=== PATIENT | female | born 1945 | race Two or more races ===

== ENCOUNTER 2019-04-01 14:32 | Inpatient (IN) | payer OTHER ==
[~2019-04-01] VITALS: Ht 175.3 cm; Wt 82.6 kg
[2019-04-01 14:35] VITALS: BP_SYST 161
--- NOTE | 2019-04-01 14:35 | NUR ---
Triaged on EMS gurney, awaiting avail bed. Accompanied by EMS EMT's
[2019-04-01] MEDS ORDERED: CLOP75TA32 PO (15:32)
[2019-04-01] MEDS ORDERED: LIP20 PO (15:32)
[2019-04-01] MEDS ORDERED: TRAMADOL PO (15:32)
[2019-04-01] MEDS ORDERED: DONE10TA44 PO (15:32)
[2019-04-01] MEDS ORDERED: SER25 PO (15:32)
[2019-04-01] MEDS ORDERED: BUSP5TAB3 PO (15:32)
[2019-04-01] MEDS ORDERED: DIVA250T PO (15:32)
[2019-04-01] MEDS ORDERED: VANORAL PO (15:32)
[2019-04-01] MEDS ORDERED: LISI2.5T48 PO (15:32)
[2019-04-01] MEDS ORDERED: ROCPM1 IV (15:32)
[2019-04-01] MEDS ORDERED: PROP10TA10 PO (15:32)
--- NOTE | 2019-04-01 15:32 | NUR ---
Medication reconciliation completed with information provided by Jasen. Any prior medication reconciliation on file was reviewed and corrected.
[2019-04-01 16:31] LABS: BASOPHILS # (AUTO) 0.1 K/uL (0.0-0.2); BASOPHILS % (AUTO) 1.8 % (0.0-2.0); EOSINOPHILS # (AUTO) 0.1 K/uL (0.0-0.4); HEMATOCRIT 40.4 % (36-48); HEMOGLOBIN 13.5 g/dL (12.0-16.0); LYMPHOCYTES # (AUTO) 2.1 K/uL (1.0-5.5); LYMPHOCYTES % (AUTO) 27.1 % (20.5-51.5); MEAN CORPUSCULAR HEMOGLOBIN 32 pg (27-31); MEAN CORPUSCULAR HGB CONC 33 % (32-36); MEAN CORPUSCULAR VOLUME 95 fL (79.0-98.0); MONOCYTES # (AUTO) 0.4 K/uL (0.0-1.0); MONOCYTES % (AUTO) 5.2 % (1.7-9.3); NEUTROPHILS # (AUTO) 5.1 K/uL (1.8-7.7); NEUTROPHILS % (AUTO) 64.9 % (40.0-70.0); PLATELET COUNT (AUTO) 366 K/uL (130-430); RED BLOOD CELL COUNT(AUTO) 4.26 MIL/uL (4.2-6.2); RED CELL DISTRIBUTION WIDTH 14.4 % (9.0-15.0); WHITE BLOOD COUNT (AUTO) 7.8 K/uL (4.8-10.8)
[2019-04-01 16:58] LABS: ALANINE AMINOTRANSFERASE 22 U/L (12-78); ANION GAP 8 (5-15); ASPARTATE AMINOTRANSFERASE 20 U/L (10-37); CALCIUM 8.5 mg/dL (8.4-11.0); CHLORIDE 106 mmol/L (98-107); CREATININE 1.32 mg/dL (0.55-1.30); GLUCOSE 95 mg/dL (70-99); SODIUM SERUM 144 mmol/L (136-145); TOTAL BILIRUBIN 0.4 mg/dL (0.0-1.0); UREA NITROGEN, BLOOD 23 mg/dL (8-21)
[2019-04-01] MEDS ORDERED: MAGNESIUM OXIDE 400 MG TABLET PO ONE (17:00)
[2019-04-01] MEDS ORDERED: POTASSIUM CHLORIDE 20 MEQ TAB.PRT.SR PO ONE (17:00)
[2019-04-01 17:01] LABS: ALCOHOL, BLOOD < 3 mg/dL (<10)
[2019-04-01 17:02] LABS: POTASSIUM 2.9 mmol/L (3.5-5.1)
[2019-04-01 17:03] LABS: ACETAMINOPHEN < 1 ug/mL (1-30)
[2019-04-01 17:40] LABS: BILIRUBIN,URINE NEGATIVE (NEGATIVE); COLOR,URINE YELLOW (YELLOW); GLUCOSE,URINE NEGATIVE (NEGATIVE); KETONES,URINE NEGATIVE (NEGATIVE); LEUKOCYTE ESTERASE ,URINE 2+ (NEGATIVE); NITRITE, URINE NEGATIVE (NEGATIVE); PH,URINE 7.5 (5.0-8.0); PROTEIN URINE NEGATIVE (NEGATIVE); UROBILINOGEN,URINE 0.2 (0.2-1.0)
--- NOTE | 2019-04-01 17:40 | NUR ---
PT CAME TO ER FOR MED CLEARANCE. PT HAS NO COMPLAINTS, NO PAIN, VSS.
[2019-04-01 17:45] LABS: BLOOD, URINE TRACE (NEGATIVE); CLARITY/URINE HAZY (CLEAR)
[2019-04-01] MEDS ORDERED: LEVOFLOXACIN 500 MG TABLET PO ONE (18:00)
[2019-04-01 18:10] LABS: BARBITURATE, URINE NEGATIVE (NEG <=200); BENZODIAZEPINE, URINE NEGATIVE (NEG <=150); CANNABINOID, URINE NEGATIVE (NEG <=50); COCAINE, URINE NEGATIVE (NEG <=150); METHAMPHETAMINES SCREEN,URINE NEGATIVE (NEG <=500); OPIATE, URINE NEGATIVE (NEG <=100); PHENCYCLIDINE SCREEN,URINE NEGATIVE (NEG <=25); URINE AMPHETAMINE NEGATIVE (NEG <=500); URINE METHADONE NEGATIVE (NEG <=200); URINE OXYCODONE SCREEN NEGATIVE (NEG <=100); URINE PROPOXYPHENE SCREEN NEGATIVE (NEG <=300)
[2019-04-01 18:11] LABS: UR TRICYCLIC ANTIDEPRESSANTS NEGATIVE (NEG <=300)
[2019-04-01] MEDS ORDERED: NACL 0.9% 1,000 ML IV ONE (18:45)
[2019-04-01 18:51] LABS: BACTERIA,URINE FEW /HPF (None Seen); MUCUS,URINE None Seen /LPF (None Seen); RBC,URINE 0-3 /HPF (0-3)
--- NOTE | 2019-04-01 19:00 | NUR ---
PT FAMILY GAVE PHONE NUMBER TO NURSING STATION TO CONTACT WHEN PT ADMITTED. PT CURRENTLY RESTING IN BED NO COMPLAINTS.
--- NOTE | 2019-04-01 21:50 | NUR ---
ADMISSION NOTE Received patient from ER via ruba, received report from ERICA Rogers. Patient admitted with diagnosis of UTI, hyperkalemia.
--- NOTE | 2019-04-01 21:55 | NUR ---
Patient will be admitted to care of Radha MALDONADO. Admitted to Tele unit. Will go to room 121A. Belongings list completed. Complete and up to date summary report printed. SBAR report to be given at bedside with opportunity for questions.
[2019-04-01 22:16] VITALS: BP_SYST 157
--- NOTE | 2019-04-01 23:20 | NUR ---
Assessment Received SBAR report from ERICA Womack admit nurse. Patient is resting in bed, eyes open, no s/sx of distress and nonlabored breathing on room air. Assessment done.
[2019-04-02] VITALS: BP_SYST 162
[2019-04-02] MEDS ORDERED: ALBUTEROL SULFATE 0.083% 2.5 MG/3 ML VIAL.NEB INH PRN (00:45)
[2019-04-02] MEDS ORDERED: ACETAMINOPHEN 325 MG TABLET PO PRN (00:45)
[2019-04-02] MEDS ORDERED: cefTRIAXone 1 GM IVPB PREMIX 50 ML IV SCH ×2 (01:00)
[2019-04-02] MEDS ORDERED: POTASSIUM CHLORIDE 20 MEQ TAB.PRT.SR PO ONE ×2 (01:00→15:30)
[2019-04-02] MEDS ORDERED: hydrALAZINE HCL 20 MG/ML VIAL IVP ONE (01:00)
[2019-04-02] MEDS ORDERED: LORazepam 2 MG/ML VIAL IVP ONE (01:00)
--- NOTE | 2019-04-02 01:00 | NUR ---
Agitated, combative, paged Patient suddenly got up out of bed, left room and attempted to walk in hallway. It was not possible to reorient her to surroundings, due to she got verbally aggressive and started cursing at the staff. She said we "don't know anything, we are b...s" and she wants to go home. She demanded a cup of water and it was provided. Security was called and the staff kept the patient from escalating. She did return to her room, though she was upset that her daughter was not here and she insisted she was going home. Dr. Asher was paged and informed of elevated blood pressure and agitate state, she provided one time medication orders, which were read back and entered in [employer].
--- NOTE | 2019-04-02 01:38 | NUR ---
Milton Sanchezoline Patient agitated, combative and verbally cursing at the staff. Presently she is in bed, she refused to take PO K-dur and refused IVP hydralazine for elevated B/P. It took the assistance of four staff members, including security, to hold her arms and legs so that medication can be given IVP. Ativan and hydralazine were both administered IVP. Will continue to monitor.
[2019-04-02 02:10] VITALS: BP_SYST 182
--- NOTE | 2019-04-02 04:15 | NUR ---
RESTING Patient is resting, w/ eyes closed. Presently she is calm. Safety precautions in place. Will continue to monitor.
--- NOTE | 2019-04-02 05:40 | NUR ---
awake Patient attempted to get out of bed and bed alarm sounded. She was assisted. She was calm and said she needed to use the restroom. She was assisted and returned back to bed after voided. She was calm and carried a conversation. She covered up and closed her eyes again. Bed alarm on. Will continue to monitor.
[2019-04-02 07:53] LABS: BASOPHILS % (AUTO) 0.5 % (0.0-2.0); EOSINOPHILS # (AUTO) 0.1 K/uL (0.0-0.4); EOSINOPHILS % (AUTO) 0.9 % (0.0-4.0); HEMATOCRIT 39.6 % (36-48); HEMOGLOBIN 13.2 g/dL (12.0-16.0); LYMPHOCYTES # (AUTO) 1.6 K/uL (1.0-5.5); LYMPHOCYTES % (AUTO) 23.7 % (20.5-51.5); MEAN CORPUSCULAR HEMOGLOBIN 32 pg (27-31); MEAN CORPUSCULAR HGB CONC 33 % (32-36); MEAN CORPUSCULAR VOLUME 95 fL (79.0-98.0); MONOCYTES # (AUTO) 0.7 K/uL (0.0-1.0); MONOCYTES % (AUTO) 10.3 % (1.7-9.3); NEUTROPHILS # (AUTO) 4.4 K/uL (1.8-7.7); NEUTROPHILS % (AUTO) 64.6 % (40.0-70.0); PLATELET COUNT (AUTO) 339 K/uL (130-430); RED BLOOD CELL COUNT(AUTO) 4.15 MIL/uL (4.2-6.2); RED CELL DISTRIBUTION WIDTH 14.4 % (9.0-15.0); WHITE BLOOD COUNT (AUTO) 6.8 K/uL (4.8-10.8)
[2019-04-02 08:00] VITALS: BP_SYST 125
[2019-04-02 08:26] LABS: ALANINE AMINOTRANSFERASE 19 U/L (12-78); ALBUMIN 2.8 g/dL (3.4-4.8); ANION GAP 7 (5-15); ASPARTATE AMINOTRANSFERASE 16 U/L (10-37); CALCIUM 8.5 mg/dL (8.4-11.0); CHLORIDE 106 mmol/L (98-107); GLUCOSE 81 mg/dL (70-99); SODIUM SERUM 142 mmol/L (136-145); TOTAL BILIRUBIN 0.5 mg/dL (0.0-1.0); UREA NITROGEN, BLOOD 14 mg/dL (8-21)
[2019-04-02 08:29] LABS: POTASSIUM 2.8 mmol/L (3.5-5.1)
[2019-04-02] MEDS ORDERED: COMMUNICATION ORDER XX ONE (08:30)
[2019-04-02] MEDS: CLOPIDOGREL BISULFATE 75 MG TABLET PO SCH (09:00)
[2019-04-02] MEDS: LISINOPRIL 5 MG TABLET PO SCH (09:00)
[2019-04-02] MEDS: PROPRANOLOL HCL 10 MG TABLET (INDERAL) PO SCH ×2 (09:00→21:48)
[2019-04-02] MEDS: busPIRone HCL 5 MG TABLET PO SCH ×2 (09:00→21:48)
[2019-04-02] MEDS: VANCOMYCIN HCL ORAL SOLUTION 250 MG/5 ML, 80 ML PO SCH ×3 (09:00→21:47)
[2019-04-02] MEDS: QUEtiapine FUMARATE 25 MG TABLET PO SCH ×2 (09:00→21:49)
--- NOTE | 2019-04-02 09:10 | NUR ---
Patient has stable vital signs, she is refusing her morning meds. Her daughter is by her side. Dimitrios
--- NOTE | 2019-04-02 09:26 | NUR ---
CONSULTATION PAGED/CALLED Reason for Consultation: [] INCREASED COMBATIVENES Person Who was Notified: [] SHARLA Consulting Physician: [] DR WILLARD Social Insurance Adviser Specialty: [] PSYCH Ordering Physician: [] DR GARCIA
[2019-04-02] MEDS ORDERED: hydrALAZINE HCL 20 MG/ML VIAL IVP PRN (10:30)
[2019-04-02] MEDS ORDERED: ENALAPRILAT DIHYDRATE 1.25 MG/ML VIAL IVP PRN (10:30)
[2019-04-02] MEDS ORDERED: cloNIDine HCL 0.1 MG TABLET PO PRN (10:30)
[2019-04-02 12:15] VITALS: BP_SYST 121
--- NOTE | 2019-04-02 13:45 | NUR ---
Patient was uncooperative and wanted to leave AMA, was called and ordered haldol, diphenhydramine and ativan. Patient cooperated with injection. Patient is back in her bed sleeping. Daughter was called to give her an update of her mothers well-being. Dimitrios
[2019-04-02] MEDS ORDERED: LORazepam 2 MG/ML VIAL IM ONE (14:00)
[2019-04-02] MEDS ORDERED: HALOPERIDOL LACTATE 5 MG/ML VIAL IM ONE (14:00)
[2019-04-02] MEDS ORDERED: DIPHENHYDRAMINE INJ 50 MG/ML VIAL IM ONE (14:00)
[2019-04-02] MEDS ORDERED: DIPHENHYDRAMINE INJ 50 MG/ML VIAL ONE (14:23)
[2019-04-02] MEDS ORDERED: LORazepam 2 MG/ML VIAL ONE (14:23)
[2019-04-02] MEDS ORDERED: HALOPERIDOL LACTATE 5 MG/ML VIAL ONE (14:24)
[2019-04-02 16:10] VITALS: BP_SYST 131
--- NOTE | 2019-04-02 17:41 | NUR ---
Patient is stable, being taken down to radiology for imaging. Will give her flagyl IV once she returns. Dimitrios MALDONADO
--- NOTE | 2019-04-02 18:01 | NUR ---
Patient is back in her room, vitals are stable, bed is low, locked, 2 side rails up and call light within reach. Dimitrios MALDONADO
--- NOTE | 2019-04-02 19:30 | NUR ---
opening note Patient is resting w/ eyes closed, nonlabored breathing. IV antibiotic is infusing and patient is tolerating. Bed is locked in lowest position, bed alarm on and call light w/in reach.
[2019-04-02] MEDS: LEVOFLOXACIN 250 MG/D5W 50 ML IV SCH (20:07)
[2019-04-02 20:30] VITALS: BP_SYST 139
[2019-04-02] MEDS: DONEPEZIL HCL 5 MG TABLET (ARICEPT) PO SCH (21:49)
[2019-04-02] MEDS: ATORVASTATIN 20 MG TABLET PO SCH (21:49)
--- NOTE | 2019-04-02 21:49 | NUR ---
Medications due medications given. Patient was resting w/ eyes closed. She was approached and greeted and she was calm. I informed her I had medications for her and I asked if she would like to take with water or juice and she replied she would take meds with water. She took all meds and returned to resting position and closed her eyes.
[2019-04-02] MEDS: DIVALPROEX SODIUM 250 MG TABLET(DEPAKOTE) PO SCH (21:51)
[2019-04-03] VITALS (7 sets, daily range): BP systolic 109–156
--- NOTE | 2019-04-03 00:30 | NUR ---
Dr. Lakeshia Asher making rounds
--- NOTE | 2019-04-03 04:23 | NUR ---
Resting Patient is resting w/ eyes closed, nonlabored breathing. Safety precautions in place.
[2019-04-03 07:16] LABS: BASOPHILS # (AUTO) 0.1 K/uL (0.0-0.2); BASOPHILS % (AUTO) 0.8 % (0.0-2.0); EOSINOPHILS # (AUTO) 0.2 K/uL (0.0-0.4); EOSINOPHILS % (AUTO) 1.8 % (0.0-4.0); HEMATOCRIT 38.9 % (36-48); HEMOGLOBIN 12.9 g/dL (12.0-16.0); LYMPHOCYTES # (AUTO) 2.3 K/uL (1.0-5.5); LYMPHOCYTES % (AUTO) 25.4 % (20.5-51.5); MEAN CORPUSCULAR HEMOGLOBIN 32 pg (27-31); MEAN CORPUSCULAR HGB CONC 33 % (32-36); MEAN CORPUSCULAR VOLUME 96 fL (79.0-98.0); MONOCYTES # (AUTO) 0.9 K/uL (0.0-1.0); NEUTROPHILS # (AUTO) 5.6 K/uL (1.8-7.7); PLATELET COUNT (AUTO) 349 K/uL (130-430); RED BLOOD CELL COUNT(AUTO) 4.05 MIL/uL (4.2-6.2); RED CELL DISTRIBUTION WIDTH 14.9 % (9.0-15.0)
--- NOTE | 2019-04-03 07:30 | NUR ---
closing note Patient ambulated to restroom and returned to bed. She is resting in comfortable position. Safety precautions in place. Endorsed care.
[2019-04-03 07:39] LABS: ALANINE AMINOTRANSFERASE 12 U/L (12-78); ALBUMIN 2.5 g/dL (3.4-4.8); ANION GAP 5 (5-15); ASPARTATE AMINOTRANSFERASE 13 U/L (10-37); CALCIUM 8.6 mg/dL (8.4-11.0); CHLORIDE 111 mmol/L (98-107); CREATININE 1.04 mg/dL (0.55-1.30); GLUCOSE 80 mg/dL (70-99); SODIUM SERUM 145 mmol/L (136-145); TOTAL BILIRUBIN 0.4 mg/dL (0.0-1.0); UREA NITROGEN, BLOOD 15 mg/dL (8-21)
--- NOTE | 2019-04-03 08:00 | NUR ---
Note Pt sitting up in bed eating her breakfast. No SOB/resp distress or pain/discomfort noted at this time. IV in Right AC intact and patent at this time. No needs noted at this time. Tele unit attached and intact at this time. Call light within reach.
[2019-04-03] MEDS: LISINOPRIL 5 MG TABLET PO SCH (08:21)
[2019-04-03] MEDS: PROPRANOLOL HCL 10 MG TABLET (INDERAL) PO SCH ×2 (08:21→23:43)
[2019-04-03] MEDS: CLOPIDOGREL BISULFATE 75 MG TABLET PO SCH (08:21)
[2019-04-03] MEDS: busPIRone HCL 5 MG TABLET PO SCH ×2 (08:21→23:37)
[2019-04-03] MEDS: VANCOMYCIN HCL ORAL SOLUTION 250 MG/5 ML, 80 ML PO SCH ×3 (08:22→23:45)
[2019-04-03] MEDS: QUEtiapine FUMARATE 25 MG TABLET PO SCH ×2 (08:22→23:44)
--- NOTE | 2019-04-03 09:50 | NUR ---
Nutrition Update Kristopher Scale 14 noted. Pt admitted for UTI, hyperkalemia. Diet: regular BMI: 26.9 kg/m2 RD to follow per nutrition care standards.
--- NOTE | 2019-04-03 11:20 | NUR ---
NOTE Dr Harris at pt's bedside assessing pt and now speaking to pt's daughter Paula on the phone. Update and questions/concerns were answered at this time.
--- NOTE | 2019-04-03 12:15 | NUR ---
Note' Pt got OOB and came to nurses' station, stating she wants to go home. Pt removed tele unit at noon and refuses to have it reattached. Pt sitting on side of bed and waiting for lunch at this time. Pt stable in gait - no unsteadiness or weakness noted at this time. Pt has been next to nurses' station all shift for close observation for needs and care. Call light within reach.
--- NOTE | 2019-04-03 15:15 | NUR ---
Note Pt's 2 daughters and friend at bedside - pt upset/restless and wants to go home. Pt's daughter Paula spoke to Brittney (KHUSHBU) about Hospice for pt. Dr Harris was called for an order. Waiting for call back. Pt is resting in bed with family at bedside. Call light within reach.
--- NOTE | 2019-04-03 15:32 | NUR ---
Discharge Planning: DCP faxed pt referral to [facility] ([phone]) DCP to follow up. Addendum: 04/03/19 at 1721 by Radha Peguero DP DCP spoke to Stefany at [facility] ([phone]) declined taking patient. DCP made KHUSHBU aware. Addendum: 04/03/19 at 1724 by Radha Peguero DP DCP made nurse lopez .
[2019-04-03] MEDS: LEVOFLOXACIN 250 MG/D5W 50 ML IV SCH (16:40)
--- NOTE | 2019-04-03 18:45 | NUR ---
Note Pt's 2 daughters left the floor after speaking to rn case management Brittney. Pt has been restless and confused all shift, walking out into the hallway and to the front of the hospital lobby. No SOB/resp distress or pain/discomfort noted all shift. IV in right AC intact and patent. Pt has been next to nurses' station all shift for close observation for needs and care. Pt was checked on q1' and PRN all shift for needs and care. No needs noted at this time. Call light within reach.
[2019-04-03] MEDS ORDERED: LORazepam 2 MG/ML VIAL IVP PRN (21:45)
[2019-04-03] MEDS: DONEPEZIL HCL 5 MG TABLET (ARICEPT) PO SCH (23:37)
[2019-04-03] MEDS: DIVALPROEX SODIUM 250 MG TABLET(DEPAKOTE) PO SCH (23:42)
[2019-04-03] MEDS: ATORVASTATIN 20 MG TABLET PO SCH (23:43)
--- NOTE | 2019-04-04 07:30 | NUR ---
AM rounds: Patient is calm, in bed. Safety precautions maintained.
[2019-04-04 08:00] VITALS: BP_SYST 151
--- NOTE | 2019-04-04 08:25 | NUR ---
Patient just woke up and is having breakfast, she took all of her meds this am, she is coorperative but sad that her daughters are not with her this morning. Vitals are within normal limits and bed linen was changed this morning. Bed is low and locked, call light is within reach, two side rails are up. Dimitrios MALDONADO
[2019-04-04] MEDS: CLOPIDOGREL BISULFATE 75 MG TABLET PO SCH (08:44)
[2019-04-04] MEDS: QUEtiapine FUMARATE 25 MG TABLET PO SCH ×2 (08:44→22:49)
[2019-04-04] MEDS: busPIRone HCL 5 MG TABLET PO SCH ×2 (08:44→22:51)
[2019-04-04] MEDS: LISINOPRIL 5 MG TABLET PO SCH (08:47)
[2019-04-04] MEDS: PROPRANOLOL HCL 10 MG TABLET (INDERAL) PO SCH ×2 (08:48→22:50)
[2019-04-04] MEDS: VANCOMYCIN HCL ORAL SOLUTION 250 MG/5 ML, 80 ML PO SCH ×3 (08:48→21:00)
--- NOTE | 2019-04-04 10:28 | NUR ---
DCP follow-up/Hospice Eval: DELINQUENT TAX COLLECTION ASSISTANT received Order for Hospice Eval. Contacted [facility] hospice admission , completed phone intake and faxed packet to . Contacted [facility] admission [phone], faxed packet to . DCP will continue to follow up.
--- NOTE | 2019-04-04 11:45 | NUR ---
Patient is being disruptive and throwing doors. was called to give Ativan 1MG. She is now sitting im her bed quietly. Dimitrios MALDONADO
--- NOTE | 2019-04-04 12:00 | NUR ---
Agitation: Patient is agitated, attempted to lock door , medicated with Ativan 1 mg IVP.
[2019-04-04 12:35] VITALS: BP_SYST 138
--- NOTE | 2019-04-04 13:22 | NUR ---
Family/ hospice: Spoke with patient's daughters Paula and Emily, they did not like [facility], want patient to go back to [facility] and prefers [facility] since patient was under their services before for palliative care. Daughters went to check if they wound take patient back under [facility], they won't know until saturday.
[2019-04-04] MEDS: LORazepam 2 MG/ML VIAL IVP PRN ×2 (13:39→16:53)
--- NOTE | 2019-04-04 13:44 | NUR ---
Patient is calm and 4 family members are by her side. Her vitals have been stable and is currently eating her lunch. Her family states that she is very calm at the moment. Bed is low and locked, call light within reach and 2 side rails are up. Dimitrios MALDONADO
--- NOTE | 2019-04-04 15:17 | NUR ---
Hospice Eval with [facility]: Spoke with Selam Romero slots manager. Requested a new Hospice Eval order for [facility]. Requested documents faxed to [facility] at [phone]. Addendum: 04/04/19 at 1523 by Sangita Aguilar RN Santi Jimenez uses [facility] Only.
[2019-04-04] MEDS: LEVOFLOXACIN 250 MG/D5W 50 ML IV SCH (16:53)
[2019-04-04 17:10] VITALS: BP_SYST 141
--- NOTE | 2019-04-04 17:15 | NUR ---
Vital signs stable, patient got undressed and refused to get dressed. Gave 1mg ativan, patient is calm now. Bed is low and locked, call light is within reach, two side rails are up. Dimitrios MALDONADO
--- NOTE | 2019-04-04 17:33 | NUR ---
Patient is being taken to X-RAYs, she is cooperative at the moment. Laurie MALDONADO
--- NOTE | 2019-04-04 18:43 | NUR ---
Closing notes: Patient is sleeping, her IV is currently infusing. Bed is low and locked, call light is within reach, two side rails are up. X-rays were done today. Report will be given to the assistant casino shift manager nurse. Dimitrios MALDONADO
[2019-04-04] MEDS: DIVALPROEX SODIUM 250 MG TABLET(DEPAKOTE) PO SCH (22:48)
[2019-04-04] MEDS: DONEPEZIL HCL 5 MG TABLET (ARICEPT) PO SCH (22:49)
[2019-04-04] MEDS: ATORVASTATIN 20 MG TABLET PO SCH (22:51)
[2019-04-05] VITALS (7 sets, daily range): BP systolic 130–154
--- NOTE | 2019-04-05 07:49 | NUR ---
Am Rounds: Patient is awake, confused. Sat up on the edge of the bed for breakfast. Safety precautions in place. Call light within reach.
[2019-04-05] MEDS: LORazepam 2 MG/ML VIAL IVP PRN ×2 (08:09→13:52)
[2019-04-05] MEDS: QUEtiapine FUMARATE 25 MG TABLET PO SCH (08:14)
[2019-04-05] MEDS: CLOPIDOGREL BISULFATE 75 MG TABLET PO SCH (08:15)
[2019-04-05] MEDS: busPIRone HCL 5 MG TABLET PO SCH (08:15)
[2019-04-05] MEDS: PROPRANOLOL HCL 10 MG TABLET (INDERAL) PO SCH (08:15)
[2019-04-05] MEDS: LISINOPRIL 5 MG TABLET PO SCH (08:15)
[2019-04-05] MEDS: VANCOMYCIN HCL ORAL SOLUTION 250 MG/5 ML, 80 ML PO SCH ×2 (08:15→15:00)
[2019-04-05 09:02] LABS: BASOPHILS # (AUTO) 0.1 K/uL (0.0-0.2); BASOPHILS % (AUTO) 0.8 % (0.0-2.0); EOSINOPHILS # (AUTO) 0.2 K/uL (0.0-0.4); EOSINOPHILS % (AUTO) 2.2 % (0.0-4.0); HEMATOCRIT 42.1 % (36-48); HEMOGLOBIN 13.8 g/dL (12.0-16.0); LYMPHOCYTES % (AUTO) 20.3 % (20.5-51.5); MEAN CORPUSCULAR HEMOGLOBIN 32 pg (27-31); MEAN CORPUSCULAR HGB CONC 33 % (32-36); MEAN CORPUSCULAR VOLUME 97 fL (79.0-98.0); MONOCYTES # (AUTO) 0.7 K/uL (0.0-1.0); MONOCYTES % (AUTO) 7.3 % (1.7-9.3); NEUTROPHILS # (AUTO) 6.8 K/uL (1.8-7.7); NEUTROPHILS % (AUTO) 69.4 % (40.0-70.0); PLATELET COUNT (AUTO) 422 K/uL (130-430); RED BLOOD CELL COUNT(AUTO) 4.35 MIL/uL (4.2-6.2); WHITE BLOOD COUNT (AUTO) 9.8 K/uL (4.8-10.8)
[2019-04-05 09:12] LABS: ALANINE AMINOTRANSFERASE 18 U/L (12-78); ALBUMIN 2.8 g/dL (3.4-4.8); ANION GAP 6 (5-15); ASPARTATE AMINOTRANSFERASE 16 U/L (10-37); CALCIUM 8.8 mg/dL (8.4-11.0); CHLORIDE 110 mmol/L (98-107); CREATININE 1.27 mg/dL (0.55-1.30); GLUCOSE 116 mg/dL (70-99); POTASSIUM 4.1 mmol/L (3.5-5.1); SODIUM SERUM 142 mmol/L (136-145); TOTAL BILIRUBIN 0.5 mg/dL (0.0-1.0); UREA NITROGEN, BLOOD 14 mg/dL (8-21)
--- NOTE | 2019-04-05 11:30 | NUR ---
Rounds: Patient is asleep. No distress noted.
[2019-04-05] MEDS ORDERED: LEVOFLOXACIN 250 MG TABLET PO ONE (12:00)
--- NOTE | 2019-04-05 15:42 | NUR ---
Rounds: Patient is up on the chair, asking same questions repeatedly. Does not comprehend explanations.
--- NOTE | 2019-04-05 17:35 | NUR ---
Discharge: Discharged to [facility] with [facility]. Belongings sent with the patient.
[2019-04-06] MEDS ORDERED: LEVOFLOXACIN 250 MG TABLET PO SCH (09:00)
== END 2019-04-05 17:35 | disposition hospice, home (50) | DRG 689 ==
LOC: SED 14:32 → STU 18:56 → SMU 04-03 17:00
PROVIDERS: ADMIT Internal Medicine Hospice and Palliative Medicine; ATTEND Internal Medicine Hospice and Palliative Medicine
DX: N39.0 Urinary tract infection, site not specified (principal); G93.41 Metabolic encephalopathy; E43 Unspecified severe protein-calorie malnutrition; R91.1 Solitary pulmonary nodule; F03.90 Unspecified dementia, unspecified severity, without behavioral disturbance, psychotic disturbance, mood disturbance, and anxiety; F32.9 Major depressive disorder, single episode, unspecified; F41.9 Anxiety disorder, unspecified; E87.6 Hypokalemia; I10 Essential (primary) hypertension; Z90.12 Acquired absence of left breast and nipple; Z88.0 Allergy status to penicillin; Z88.5 Allergy status to narcotic agent; Z79.899 Other long term (current) drug therapy; Z79.02 Long term (current) use of antithrombotics/antiplatelets; Z68.26 Body mass index [BMI] 26.0-26.9, adult
CPT/HCPCS: 36415; 70450-TC; 71045; 71250-TC; 72131; 80053; 80307; 81000-TC; 82140-TC; 83735-TC; 85025; 87081; 87086; 93005; 99285; G0378; G0480; G0481; G0482; J0360; J0696; J1200; J1630; J1956; J2060; J3370